=== PATIENT | female | born 1970 | race Caucasian/White ===

== ENCOUNTER 2017-09-27 10:50 | Inpatient (IN) | payer BC ==
--- NOTE | 2017-09-25 14:40 | HISTORY & PHYSICAL EXAMINATION ---
DATE OF ADMISSION: 09/27/2017 CHIEF COMPLAINT: Right hip pain. HISTORY OF PRESENT ILLNESS: The patient is a 47-year-old female referred to our office for a stress fracture about her right hip. Per the patient, she is a big runner and ran some races recently. About a month ago, she developed right hip and groin pain. She has been seen and evaluated by her primary care physician. She had a recent MRI, which was suggestive of a stress fracture about her right hip and was referred to our office for evaluation. MRI is suggestive of stress fracture about the basicervical region of the femoral neck. She is now scheduled for a right hip pinning. PAST MEDICAL HISTORY: Hypertension and depression. PAST SURGICAL HISTORY: x2, shoulder surgery, ankle surgery, knee arthroscopy, hernia repair, hysterectomy, cholecystectomy, breast reduction surgery, and Mons procedure. MEDICATIONS: Lisinopril 10/12.5, multivitamin daily, vitamin D 2000 units daily, and naproxen daily. ALLERGIES: TYLENOL. SOCIAL HISTORY AND REVIEW OF SYSTEMS: Noncontributory. PHYSICAL EXAMINATION: GENERAL: Well-nourished and well-developed female who appears her stated age. HEENT: Normocephalic and atraumatic. Extraocular movements intact. Oropharynx is pink and moist. NECK: Supple without adenopathy. LUNGS: Clear to auscultation bilaterally. HEART: Regular rate and rhythm. ABDOMEN: Soft, nontender, and nondistended. EXTREMITIES: The upper extremities are within normal limits. The right hip is irritable to ROM. X-RAYS: Plain films were reviewed. There is evidence of a stress fracture across the basicervical region of the femoral neck. This is nondisplaced. ASSESSMENT: Femoral neck stress fracture. PLAN: Above discussed with the patient. Risks versus benefits were discussed. Consent was obtained. We will proceed with right hip pinning. ZULAY
[2017-09-26 09:01] VITALS: BMI 28.0
[2017-09-27] VITALS (8 sets, daily range): BP systolic 96–132; BP diastolic 63–88; PULSE 53–96; TEMP 36.5–36.9; O2SAT 97–100; Ht 170.2 cm; Wt 81.8 kg
[~2017-09-27] VITALS: Ht 170.2 cm; Wt 81.8 kg
[~2017-09-27 10:50] MED LIST: BUPIVACAINE 0.5 % 5 MG/1 ML PF 10ML VIAL ONE; CEFAZOLIN 1000MG IV PUSH 5 ML IV SCH; CHOL20005 PO; LACTATED RINGER'S 1000ML 1,000 ML IV SCH; LACTATED RINGER'S 1000ML 500 ML IV ONE; LSN/10125 PO; MISCCAP80 PO; MULT-506 PO; NAPR-1169 PO
[2017-09-27 12:13] LABS: PARTIAL THROMBOPLASTIN RATIO 1.1
[2017-09-27] MEDS ORDERED: EpHEDrine SULFATE INJ 50 MG/ML AMP IV PRN (12:15)
[2017-09-27] MEDS ORDERED: ONDANSETRON INJ 2 MG/ML 2 ML VIAL IV PRN ×2 (12:15→14:00)
[2017-09-27] MEDS ORDERED: LABETALOL HCL IV 5 MG/ML 20ML IV PRN (12:15)
[2017-09-27] MEDS ORDERED: FLUMAZENIL 0.1 MG/1 ML 10 ML VIAL IV PRN (12:15)
[2017-09-27] MEDS ORDERED: PHENYLEPHRINE 100MCG/ML 5ML SYR IV PRN (12:15)
[2017-09-27] MEDS ORDERED: NALOXONE HCL 0.4 MG/1 ML VIAL/CARP IV PRN (12:15)
[2017-09-27] MEDS ORDERED: ATROPINE SULFATE 0.1 MG/ML 5ML SYR IV PRN (12:15)
[2017-09-27] MEDS ORDERED: HYDROmorphone INJ 1 MG/ML SYR IV PRN (12:15)
[2017-09-27] MEDS ORDERED: MoRPHine SULFATE 10 MG/ML CARP/VIAL IV PRN (12:15)
--- NOTE | 2017-09-27 12:37 | History & Physical Bridge Note ---
H&P Re-Evaluation Bridge Note: I have examined the patient, reviewed the History & Physical and in the interval since the performance of the History & Physical I have noted the following changes of clinical significance: No changes noted
[2017-09-27] MEDS ORDERED: FENTANYL CITRATE INJ 50 MCG/1 ML 2 ML VIAL ONE ×4 (12:39→14:19)
[2017-09-27] MEDS ORDERED: MIDAZOLAM HCL 1 MG/ML 2ML VIAL ONE (12:39)
[2017-09-27] MEDS ORDERED: MoRPHine SULFATE 4 MG/ML 1 ML CARP\\VIAL IV PRN (14:00)
[2017-09-27] MEDS ORDERED: MAGNESIUM HYDROXIDE SUSP 30 ML UDC PO PRN (14:00)
[2017-09-27] MEDS ORDERED: ALUMINUM/MAGNESIUM/SIMETH (MAALOX MAX) 30 ML UDC PO PRN (14:00)
[2017-09-27] MEDS ORDERED: MoRPHine SULFATE 2 MG/ML CARP IV PRN (14:00)
[2017-09-27] MEDS ORDERED: BISACODYL 10 MG SUPP PR PRN (14:00)
[2017-09-27] MEDS ORDERED: DiphenhydrAMINE HCL 50 MG/ML VIAL ONE ×2 (14:01→14:57)
[2017-09-27] MEDS ORDERED: LIDOCAINE HCL 2% 2 ML VIAL (20MG/ML) ONE ×2 (14:01)
[2017-09-27] MEDS ORDERED: PROPOFOL IV EMULSION 10 MG/ML 20 ML VIAL IV ONE (14:01)
[2017-09-27] MEDS ORDERED: DEXAMETHASONE SOD INJ 4 MG/ML VIAL ONE (14:01)
[2017-09-27] MEDS ORDERED: IV FLUIDS COMPLETED PRN (14:15)
--- NOTE | 2017-09-27 14:22 | [facility] Post Operative Brief Note ---
Immediate Operative Summary Operative Date Sep 27, 2017. Pre-Operative Diagnosis Femoral neck stress fracture Post-Operative Diagnosis Same as preop Procedure(s) Performed Open Reduction Internal Fixation Cannulated Screw Right Hip Surgeon Dr. Wan Demographer Surgeon(s) None Estimated Blood Loss 20 ml Findings non displaced fracture Specimens None per Surgeon Complication(s) None Disposition Recovery Room / PACU
[2017-09-27] MEDS ORDERED: FLUMAZENIL 0.1 MG/1 ML 10 ML VIAL IV ONE (14:43)
--- NOTE | 2017-09-27 15:39 | DIAGNOSTIC IMAGING REPORT ---
R HIP OR FILMS CLINICAL HISTORY: RT HIP PINNING W/CANNULATED SCREWS COMPARISON STUDY: None FLUOROSCOPY TIME: 42 seconds. FINDINGS: 3 pins have been placed in good position within the right hip. No evidence of dislocation. Alignment is anatomic. IMPRESSION: Successful placement of 3 right hip pins The above report was generated using voice recognition software. It may contain grammatical, syntax or spelling errors. Electronically signed by: Bradley Amanda M.D. 09/27/2017 3:38 PM Dictated Date/Time: 09/27/2017 3:37 PM
--- NOTE | 2017-09-27 16:06 | Anesthesiology Progress Note ---
Anesthesia Post Op Note Date & Time Sep 27, 2017 at 16:06 Vital Signs Pain Intensity: 4 Vital Signs Past 12 Hours Date Time Temp Pulse Resp B/P (MAP) Pulse Ox O2 Delivery O2 Flow Rate FiO2 09/27/17 15:45 78 12 125/78 98 Nasal Cannula 2 09/27/17 15:30 36.4 82 12 124/80 98 Nasal Cannula 2 09/27/17 15:15 36.0 90 12 135/76 99 Nasal Cannula 2 09/27/17 15:05 90 12 135/113 100 Nasal Cannula 2 09/27/17 14:55 87 16 113/91 99 Oxymask 10 09/27/17 14:45 96 15 133/87 99 Oxymask 10 09/27/17 14:38 36.0 99 14 128/86 99 Oxymask 10 09/27/17 11:30 36.9 96 18 115/68 99 Room Air Notes Mental Status: alert / awake / arousable, participated in evaluation Pt Amnestic to Procedure: Yes Nausea / Vomiting: adequately controlled Pain: adequately controlled Airway Patency, RR, SpO2: stable & adequate BP & HR: stable & adequate Hydration State: stable & adequate Anesthetic Complications: no major complications apparent
[2017-09-27] MEDS: KETOROLAC TROMETHAMINE 30 MG/ML VIAL IV. SCH ×2 (17:10→22:01)
[2017-09-27] MEDS: ACETAMINOPHEN 500 MG TAB PO SCH ×2 (17:10→22:01)
[2017-09-27] MEDS: D5W AND 1/2NSS + 20MEQ KCL 1,000 ML IV SCH (17:56)
[2017-09-27] MEDS: OXYCODONE HCL IR 5 MG TAB (IMMEDIATE RELEASE) PO PRN ×2 (20:13→20:48)
[2017-09-27] MEDS: ASPIRIN 81 MG ECTAB PO SCH (20:47)
[2017-09-27] MEDS: CEFAZOLIN IV 2,000 MG in SYRINGE 0 ML IV SCH (22:01)
[2017-09-28] MEDS ORDERED: NURSING VERBAL MED ORDER ONE (00:15)
[2017-09-28] MEDS: D5W AND 1/2NSS + 20MEQ KCL 1,000 ML IV SCH (03:09)
[2017-09-28] MEDS: OXYCODONE HCL IR 5 MG TAB (IMMEDIATE RELEASE) PO PRN ×2 (03:11→12:33)
[2017-09-28] MEDS ORDERED: INFLUENZA VIRUS QUAD VACCINE 0.5 ML SYR IM. ONE (03:15)
[2017-09-28] MEDS ORDERED: INFLUENZA ADMINISTRATION CHARGE ONE (03:15)
[2017-09-28 03:29] VITALS: BP 99/64; PULSE 57; TEMP 36.8; O2SAT 99
[2017-09-28] MEDS: KETOROLAC TROMETHAMINE 30 MG/ML VIAL IV. SCH ×2 (04:01→09:55)
[2017-09-28] MEDS: ACETAMINOPHEN 500 MG TAB PO SCH ×2 (05:42→12:34)
[2017-09-28] MEDS: CEFAZOLIN IV 2,000 MG in SYRINGE 0 ML IV SCH (05:42)
[2017-09-28 07:01] LABS: BUN/CREATININE RATIO 17.4 (10-20); CALCIUM 8.7 mg/dl (8.5-10.1); CREATININE 0.77 mg/dl (0.60-1.20); POTASSIUM 4.4 mmol/L (3.5-5.1)
--- NOTE | 2017-09-28 07:06 | OPERATIVE REPORT ---
DATE OF OPERATION: 09/27/2017 PREOPERATIVE DIAGNOSIS: Stress intertrochanteric fracture, right hip. POSTOPERATIVE DIAGNOSIS: Stress intertrochanteric fracture, right hip. PROCEDURE: In-situ screw fixation, stress fracture, right hip. SURGEON: Jitendra Wan MD ANESTHESIA: General. COMPLICATIONS: None. ATTEST OF NOTE: Following induction of adequate general anesthesia, the patient was placed on the fracture table. An image intensifier was used to confirm no displacement of the fracture. This being confirmed, the right hip was prepped and draped in usual sterile manner. A small incision was made in the lateral aspect of the thigh with 3 cannulated screws were placed over drill tipped guidewires traversing the fracture. Final images were obtained, which showed good screw fixation. The wound was irrigated and closed using 2-0 Dexon and golden. Sterile dressing of 4 x 4's and Op-Site was applied. The patient tolerated the procedure well. I attest to the content of the Intraoperative Record and any orders documented therein. Any exceptions are noted below. ZULAY
--- NOTE | 2017-09-28 08:00 | Orthopedic Progress Note ---
Orthopedic Progress Note Date of Service Sep 28, 2017. Subjective Post OP Day: 1 Reports: feeling well Objective N/V intact, dressing C/D/I (Dressing changed), toes mobile Date Time Temp Pulse Resp B/P (MAP) Pulse Ox O2 Delivery O2 Flow Rate FiO2 09/28/17 03:29 36.8 57 16 99/64 (76) 99 Room Air 09/27/17 23:40 Room Air 09/27/17 23:38 36.8 53 14 97/63 (74) 98 Room Air 09/27/17 19:11 36.8 77 18 114/67 (83) 97 Room Air 09/27/17 18:12 36.8 91 18 96/65 (75) 97 Room Air 09/27/17 17:59 36.9 89 18 122/74 (90) 99 Nasal Cannula 2.0 09/27/17 17:00 36.5 78 18 110/76 (87) 100 Nasal Cannula 2.0 09/27/17 16:31 36.5 71 18 128/88 (101) 100 Nasal Cannula 2.0 09/27/17 16:00 36.6 83 18 132/88 (103) 100 Nasal Cannula 2.0 09/27/17 16:00 Nasal Cannula 2.0 09/27/17 16:00 100 Nasal Cannula 2.0 09/27/17 15:45 78 12 125/78 98 Nasal Cannula 2 09/27/17 15:30 36.4 82 12 124/80 98 Nasal Cannula 2 09/27/17 15:15 36.0 90 12 135/76 99 Nasal Cannula 2 09/27/17 15:05 90 12 135/113 100 Nasal Cannula 2 09/27/17 14:55 87 16 113/91 99 Oxymask 10 09/27/17 14:45 96 15 133/87 99 Oxymask 10 09/27/17 14:38 36.0 99 14 128/86 99 Oxymask 10 09/27/17 11:30 36.9 96 18 115/68 99 Room Air Assessment & Plan Assessment: 47 yo female stable POD #1 s/p right hip pinning Plan: 1. Med management 2. DVT prophylaxis- ASA, SCDs 3. PT/OT 4. D/C planning- home w/out services
[2017-09-28] MEDS ORDERED: RXC5 PO (08:02)
[2017-09-28] MEDS ORDERED: ACET-24 PO (08:02)
[2017-09-28] MEDS ORDERED: ASPEC81 PO (08:02)
[2017-09-28 08:05] VITALS: BP 112/76; PULSE 61; TEMP 36.4; O2SAT 98
--- NOTE | 2017-09-28 08:06 | Discharge Instructions ---
Discharge Instructions Date of Service Sep 28, 2017. Admission Reason for Admission: Right Hip Femoral Neck Fracture Discharge Discharge Diagnosis / Problem: Right hip fracture Discharge Goals Goal(s): Decrease discomfort, Improve function Activity Recommendations Activity Limitations: as noted below Weightbearing Status: Right non-weightbearing . Instructions / Follow-Up Instructions / Follow-Up Nonweightbearing right lower extremity with walker/crutches. May remove dressing and shower 48 hours after surgery. Maintain light dressing as needed. Frequent ice to hip area as needed. No driving until follow-up with MD. Follow-up with MD ~ 10-14 days Current Hospital Diet Patient's current hospital diet: Regular Diet Discharge Diet Recommended Diet: Regular Diet Procedures Procedures Performed: Open Reduction Internal Fixation Cannulated Screw Right Hip Pending Studies Studies pending at discharge: no Medical Emergencies . Who to Call and When: Medical Emergencies: If at any time you feel your situation is an emergency, please call 911 immediately. . Non-Emergent Contact Non-Emergency issues call your: Surgeon Call Non-Emergent contact if: temperature is above 101.5, your pain is not controlled, wound has increased drainage, wound has increased redness . "Provider Documentation" section prepared by Juan Cabrales PA-C. . VTE Core Measure Inpt VTE Proph given/why not?: Other Anticoagulation (ASA), T.E.DIsabella Stockings, SCD's [place] Drug Monitoring Program Search Results: patient reviewed within database, no issues identified
[2017-09-28 08:44] VITALS: O2SAT 98
[2017-09-28] MEDS: ASPIRIN 81 MG ECTAB PO SCH (08:53)
--- NOTE | 2017-09-28 08:57 | Anesthesiology Progress Note ---
Anesthesia Post Op Note Date & Time Sep 28, 2017 at 08:56 Vital Signs Pain Intensity: 5.0 Vital Signs Past 12 Hours Date Time Temp Pulse Resp B/P (MAP) Pulse Ox O2 Delivery O2 Flow Rate FiO2 09/28/17 08:44 98 Room Air 09/28/17 08:05 36.4 61 16 112/76 (88) 98 Room Air 09/28/17 03:29 36.8 57 16 99/64 (76) 99 Room Air 09/27/17 23:40 Room Air 09/27/17 23:38 36.8 53 14 97/63 (74) 98 Room Air Notes Mental Status: alert / awake / arousable, participated in evaluation Pt Amnestic to Procedure: Yes Nausea / Vomiting: adequately controlled Pain: adequately controlled Airway Patency, RR, SpO2: stable & adequate BP & HR: stable & adequate Hydration State: stable & adequate Anesthetic Complications: no major complications apparent
[2017-09-28] MEDS ORDERED: MULTIVITAMIN TAB PO SCH ×2 (09:00)
[2017-09-28] MEDS ORDERED: PANTOprazole SOD 40 MG TAB PO SCH (09:00)
[2017-09-28] MEDS ORDERED: LISINOPRIL/HCTZ 10/12.5MG TAB PO SCH (09:00)
[2017-09-28 10:05] VITALS: BP 112/76; PULSE 61; TEMP 36.4; O2SAT 98
[2017-09-28] MEDS ORDERED: IV FLUIDS COMPLETED PRN (11:15)
--- NOTE | 2017-10-05 10:21 | DISCHARGE SUMMARY ---
CHIEF COMPLAINT: Stress fracture, right hip. Please see complete history and physical examination. HOSPITAL COURSE: The patient underwent right hip pinning without complication. She tolerated the procedure well and was discharged to recovery room in stable condition. Her postoperative course was relatively uneventful. Her postoperative pain was reasonably well controlled with combination of spinal anesthesia, IV, and oral pain medications. She was started on aspirin for DVT prophylaxis. She also utilized ELIZABETH stockings and SCDs for additional prophylaxis. Her surgical dressing was changed on postoperative day 1, her incision was benign. She tolerated postoperative physical therapy reasonably well where she was ambulating nonweightbearing on her right lower extremity. She was discharged home on postop day 1. She will continue her nonweightbearing status. She will continue her aspirin for DVT prophylaxis and follow up in our office in approximately 10-14 days for her initial postop evaluation.
== END 2017-09-28 13:00 | disposition home or self-care (01) | DRG 482 ==
LOC: C.ACU 10:50 → OBSVTOIN 11:16 → C.3E 11:16 → ENRESERV 15:27
PROC: 0QS604Z Reposition Right Upper Femur with Internal Fixation Device, Open Approach (ICD-10-PCS; principal; 2017-09-27 13:30)
DX: M84.359A Stress fracture, hip, unspecified, initial encounter for fracture (principal); Y93.02 Activity, running; I10 Essential (primary) hypertension; Z23 Encounter for immunization; Z79.1 Long term (current) use of non-steroidal anti-inflammatories (NSAID); Z79.899 Other long term (current) drug therapy